=== PATIENT | female | born 1965 | race Caucasian/White ===

== ENCOUNTER → 2016-11-01 | Outpatient (CLI) | payer OTHER | LOC: BMCIMAGING 08:34 | DX: Z12.31 Encounter for screening mammogram for malignant neoplasm of breast (principal) | CPT/HCPCS: G0202 ==

== ENCOUNTER 2017-11-23 12:28 | Emergency (ER) | payer BC ==
[2017-11-23 12:44] VITALS: BP 97/66
== END 2017-11-23 13:09 | disposition left against medical advice (07) ==
DX: Z53.21 Procedure and treatment not carried out due to patient leaving prior to being seen by health care provider (principal)

== ENCOUNTER → 2018-01-03 | Outpatient (CLI) | payer BC | LOC: BMCIMAGING 12:16 | PROVIDERS: ATTEND Internal Medicine | DX: Z12.31 Encounter for screening mammogram for malignant neoplasm of breast (principal); N63.20 Unspecified lump in the left breast, unspecified quadrant; Z98.890 Other specified postprocedural states ==

== ENCOUNTER → 2018-01-06 | Outpatient (CLI) | payer BC | LOC: BMCIMAGING 10:31 | PROVIDERS: ATTEND Internal Medicine | DX: R92.8 Other abnormal and inconclusive findings on diagnostic imaging of breast (principal) ==

== ENCOUNTER → 2018-09-05 | Outpatient (CLI) | payer BC | LOC: BMCIMAGING 09:57 | PROVIDERS: ATTEND Internal Medicine | DX: R92.8 Other abnormal and inconclusive findings on diagnostic imaging of breast (principal) ==